=== PATIENT | female | born 1990 | race Caucasian/White ===

== ENCOUNTER → 2017-06-06 | Outpatient (CLI) | payer OTHER, BC | LOC: M RAD 14:26 | DX: Z36.89 Encounter for other specified antenatal screening (principal); O30.043 Twin pregnancy, dichorionic/diamniotic, third trimester; Z3A.33 33 weeks gestation of pregnancy | CPT/HCPCS: 76815 ==

== ENCOUNTER → 2017-06-26 | Outpatient (REF) | payer OTHER, BC | LOC: M LAB REF 17:04 | DX: Z34.83 Encounter for supervision of other normal pregnancy, third trimester (principal) ==

== ENCOUNTER 2017-07-04 09:46 | Inpatient (IN) | payer OTHER, BC ==
[2017-07-04 16:03] LABS: HEMATOCRIT 36.6 % (36.0-47.0); HEMOGLOBIN 12.9 g/dl (12.0-15.5); MEAN CORPUSCULAR HEMOGLOBIN 29.1 pg (27.0-33.0); MEAN CORPUSCULAR HGB CONC 35.2 g/dl (32.0-36.5); MEAN CORPUSCULAR VOLUME 82.6 fl (80.0-96.0); PLATELET COUNT, AUTOMATED 143 10^3/uL (150-450); RED BLOOD COUNT 4.43 10^6/uL (4.00-5.40); WHITE BLOOD COUNT 8.6 10^3/uL (4.0-10.0)
[2017-07-04] MEDS: LACTATED RINGER'S 1000 ML IV (16:19)
[2017-07-04] MEDS: LR 1,000 ML IV ×4 (16:20→21:45)
[2017-07-04] MEDS: BICITRA 30ML SOLN UDC PO (19:39)
[2017-07-04] MEDS ORDERED: KETOROLAC 60 MG/2 ML VIAL (J1885) As Ordered (19:43)
[2017-07-04] MEDS ORDERED: dexameTHASONE 4 MG/ML 1ML VIAL (J1100) As Ordered (19:43)
[2017-07-04] MEDS ORDERED: OXYTOCIN INJ 10 UNITS/ML VIAL (J2590) As Ordered (19:43)
[2017-07-04] MEDS ORDERED: ONDANSETRON 4MG/2ML VIAL (J2405) As Ordered (19:43)
[2017-07-04] MEDS ORDERED: fentaNYL 100 MCG/2 ML INJECTION (J3010) As Ordered (19:44)
[2017-07-04] MEDS ORDERED: MORPHINE PRES-FREE INJ 10 MG/10 ML VIAL (J2274) As Ordered (19:44)
[2017-07-04] MEDS ORDERED: METOCLOPRAMIDE INJ 10MG/2ML VIAL (J2765) IV (20:29)
[2017-07-04] MEDS ORDERED: NALOXONE INJ 0.4 MG/1 ML VIAL (J2310) IV ×2 (20:29)
[2017-07-04] MEDS ORDERED: ONDANSETRON 4MG/2ML VIAL (J2405) IV ×3 (20:29→21:45)
[2017-07-04] MEDS ORDERED: NALBUPHINE HCL 10 MG/ML AMP (J2300) IV (20:29)
[2017-07-04] MEDS ORDERED: PHENYLephrine HCL 500 MCG/5 ML (100MCG/ML) SYRINGE (J2370) As Ordered (21:03)
[2017-07-04] MEDS ORDERED: fentaNYL 100 MCG/2 ML INJECTION (J3010) IV (21:45)
[2017-07-04] MEDS ORDERED: KETOROLAC 30 MG/ML VIAL (J1885) IV (21:45)
[2017-07-04] MEDS ORDERED: DOCUSATE SODIUM 100 MG CAP PO (21:45)
[2017-07-04] MEDS ORDERED: MEPERIDINE INJ 25 MG/ML VIAL (J2175) IV (21:45)
[2017-07-05] MEDS: METHYLERGONOVINE MALEATE 0.2 MG/ML VIAL (J2210) IM ×2 (00:58→03:00)
[2017-07-05] MEDS ORDERED: miSOPROStol 200 MCG TAB (S0191) As Ordered ×2 (01:14→01:15)
[2017-07-05] MEDS: miSOPROStol 200 MCG TAB (S0191) PR (01:30)
[2017-07-05] MEDS: KETOROLAC 30 MG/ML VIAL (J1885) IV ×3 (02:58→14:13)
[2017-07-05] MEDS: LR 1,000 ML IV (03:01)
[2017-07-05 07:16] LABS: HEMATOCRIT 28.5 % (36.0-47.0); MEAN CORPUSCULAR HEMOGLOBIN 29.1 pg (27.0-33.0); MEAN CORPUSCULAR HGB CONC 35.8 g/dl (32.0-36.5); MEAN CORPUSCULAR VOLUME 81.4 fl (80.0-96.0); PLATELET COUNT, AUTOMATED 130 10^3/uL (150-450); RED CELL DISTRIBUTION WIDTH 13.5 % (11.5-14.5); WHITE BLOOD COUNT 12.1 10^3/uL (4.0-10.0)
[2017-07-05 07:18] LABS: HEMOGLOBIN 10.2 g/dl (12.0-15.5)
[2017-07-05] MEDS: PRENATAL VITAMINS CHEWABLE TABLET PO (08:37)
[2017-07-05] MEDS: PERCOCET 5MG/325MG TAB PO (18:30)
[2017-07-05] MEDS: IBUPROFEN 800 MG TAB PO (22:24)
[2017-07-06] MEDS: PERCOCET 5MG/325MG TAB PO ×3 (00:31→17:06)
[2017-07-06] MEDS: IBUPROFEN 800 MG TAB PO ×3 (05:55→23:00)
[2017-07-06] MEDS: PRENATAL VITAMINS CHEWABLE TABLET PO (08:19)
[2017-07-07] MEDS: PERCOCET 5MG/325MG TAB PO ×2 (00:43→05:43)
[2017-07-07] MEDS: IBUPROFEN 800 MG TAB PO (05:40)
[2017-07-07] MEDS: RHOGAM 300 MCG (1500 IU) INJ (J2790) IM (07:35)
[2017-07-07] MEDS: MEASLES,MUMPS,RUBELLA VACCINE INJ (MMR-II) (90707) SC (07:36)
[2017-07-07] MEDS: PRENATAL VITAMINS CHEWABLE TABLET PO (08:07)
== END 2017-07-07 11:27 | disposition home or self-care (01) | DRG 540 ==
LOC: M LDO 09:46 → M LDI 15:17 → M OBS 23:35
PROVIDERS: Specialist
PROC: 10D00Z1 Extraction of Products of Conception, Low, Open Approach (ICD-10-PCS; principal; 2017-07-04 20:21)
PROC: 0UB70ZZ Excision of Bilateral Fallopian Tubes, Open Approach (ICD-10-PCS; 2017-07-04 20:21)
DX: O36.8132 Decreased fetal movements, third trimester, fetus 2 (principal); O30.043 Twin pregnancy, dichorionic/diamniotic, third trimester; Z37.2 Twins, both liveborn; Z3A.37 37 weeks gestation of pregnancy; O34.211 Maternal care for low transverse scar from previous cesarean delivery; O32.2XX1 Maternal care for transverse and oblique lie, fetus 1; O32.2XX2 Maternal care for transverse and oblique lie, fetus 2; Z30.2 Encounter for sterilization

== ENCOUNTER → 2020-01-08 | Outpatient (REF) | payer BC ==
[~2020-01-08] MED LIST: COLA100C5 PO; FERR325T3 PO; FOLI1TAB11 PO; IBUP-1114 PO; IBUP600T42 PO; OXYC1TAB23 PO; PERC5TAB12 PO; PREN27TA3 PO
== END ==
LOC: M SFHCWAGY 09:59
PROVIDERS: ATTEND Advanced Practice Midwife
DX: Z12.4 Encounter for screening for malignant neoplasm of cervix (principal); Z01.419 Encounter for gynecological examination (general) (routine) without abnormal findings

== ENCOUNTER → 2020-12-22 | Outpatient (REF) | LOC: M LAB 09:29 | PROVIDERS: ATTEND Nurse Practitioner Adult Health | DX: Z00.00 Encounter for general adult medical examination without abnormal findings (principal) ==

== ENCOUNTER → 2021-10-07 | Outpatient (REF) | payer OTHER | LOC: M WUC 09:54 | PROVIDERS: ATTEND Physician Assistant | DX: N39.0 Urinary tract infection, site not specified (principal) ==